=== PATIENT | female | born 1965 | race Two or more races ===

== ENCOUNTER → 2018-11-05 | Outpatient (CLI) | payer OTHER | END | disposition home or self-care (01) | LOC: HKI 11:19 | DX: S62.600D Fracture of unspecified phalanx of right index finger, subsequent encounter for fracture with routine healing (principal); X58.XXXD Exposure to other specified factors, subsequent encounter; Z88.2 Allergy status to sulfonamides | CPT/HCPCS: 73140 ==

== ENCOUNTER → 2018-11-15 | Outpatient (CLI) | payer OTHER | END | disposition home or self-care (01) | LOC: HKI 10:12 | DX: Z48.02 Encounter for removal of sutures (principal); S62.600D Fracture of unspecified phalanx of right index finger, subsequent encounter for fracture with routine healing; X58.XXXD Exposure to other specified factors, subsequent encounter | CPT/HCPCS: Z7500 ==

== ENCOUNTER → 2018-11-22 | Outpatient (CLI) | payer OTHER | END | disposition home or self-care (01) | LOC: HKI 10:25 | DX: S62.600D Fracture of unspecified phalanx of right index finger, subsequent encounter for fracture with routine healing (principal); X58.XXXD Exposure to other specified factors, subsequent encounter | CPT/HCPCS: 73140 ==

== ENCOUNTER → 2019-01-07 | Outpatient (CLI) | payer OTHER | END | disposition home or self-care (01) | LOC: HKI 09:13 | DX: S62.600D Fracture of unspecified phalanx of right index finger, subsequent encounter for fracture with routine healing (principal); X58.XXXD Exposure to other specified factors, subsequent encounter | CPT/HCPCS: 73140 ==